=== PATIENT | female | born 1985 | race Caucasian/White ===

== ENCOUNTER 2020-06-17 14:58 | Outpatient (CLI) | payer OTHER ==
[2020-06-18 03:55] LABS: SARS-CoV-2 PCR by NAA Not Detected (NotDetected)
== END 2020-06-17 14:59 | disposition home or self-care (01) ==
LOC: CSHLAB 14:58
PROVIDERS: ATTEND Family Medicine
DX: Z20.822 Contact with and (suspected) exposure to COVID-19 (principal)
CPT/HCPCS: 87635; U0003; U0005

== ENCOUNTER 2020-06-28 04:18 | Inpatient (IN) | payer OTHER ==
[2020-06-28 04:39] VITALS: BMI 39.9
[2020-06-28] MEDS ORDERED: hydrALAZINE 20 MG/ML VIAL SLOW IVP PRN ×3 (05:45→19:03)
[2020-06-28] MEDS ORDERED: HYDROcodone/Acetaminophen 5/325 mg Tablet PO PRN ×3 (07:52→19:03)
[2020-06-28] MEDS ORDERED: Methylergonovine 0.2 MG/ML VIAL IM PRN (07:52)
[2020-06-28] MEDS ORDERED: Ibuprofen 800 MG TAB PO PRN (07:52)
[2020-06-28] MEDS ORDERED: Misoprostol 200 MCG TAB PR PRN (07:52)
[2020-06-28] MEDS ORDERED: Promethazine HCl 25 MG/ML VIAL IM PRN ×2 (07:52→11:33)
[2020-06-28] MEDS ORDERED: Carboprost 250 MCG/ML AMP IM PRN (07:52)
[2020-06-28] MEDS ORDERED: Diphenoxylate HCl/Atropine Tablet PO PRN (07:52)
[2020-06-28] MEDS ORDERED: Lidocaine 1% (PF) 30 ML VIAL SC PRN (07:52)
[2020-06-28] MEDS ORDERED: Ondansetron PF 4 MG/2 ML Vial IVP PRN ×3 (07:52→19:03)
[2020-06-28] MEDS ORDERED: Butorphanol Tartrate 1 MG/ML VIAL SLOW IVP PRN (07:52)
[2020-06-28] MEDS: Lactated Ringer's 1,000 ML IV SCH ×2 (08:10→11:33)
[2020-06-28 08:39] LABS: Hemoglobin 10.5 g/dL (12.0-15.5); Mean Corpuscular HGB CONC 33.1 g/dL (32.0-36.0); Mean Corpuscular Hemoglobin 27.9 pg (27.0-33.0); Mean Corpuscular Volume 84.3 fl (81.6-98.3); Mean Platelet Volume 11.5 fl (7.4-10.4); Platelet Count 261 10x3/uL (150-450); RBC Distribution Width 14.3 % (11.5-14.5); Red Blood Cell (RBC) Count 3.76 10x6/uL (3.90-5.03); White Blood Cell (WBC) Count 11.3 10x3/uL (3.5-10.5)
[2020-06-28] MEDS ORDERED: NS w/ Oxytocin 30 units 500 ML IVPB PRN (08:40)
[2020-06-28] MEDS ORDERED: NS w/ Oxytocin 30 units 500 ML IVPB SCH ×2 (08:45)
[2020-06-28 09:22] LABS: Hep B Surf Ag Non-Reactive S/CO (NonReactive); Syphilis Antibody Nonreactive (Nonreactive); Syphilis Antibody Index 0.03 S/CO (<1.00 Non-Reactive)
[2020-06-28 09:37] LABS: HBSAg Index 0.16 S/CO (0-0.99)
[2020-06-28] MEDS ORDERED: Fentanyl 4 mcg/Bup 0.1% Cadd 100 ML ONE (10:44)
[2020-06-28] MEDS ORDERED: diphenhydrAMINE 50 MG/ML VIAL IVP PRN (11:33)
[2020-06-28] MEDS ORDERED: Naloxone HCl 0.4 mg/ml Vial IVP PRN ×2 (11:33)
[2020-06-28] MEDS ORDERED: Lactated Ringer's 500 ML IV PRN (11:33)
[2020-06-28] MEDS ORDERED: Acetaminophen 325 MG TAB PO PRN (11:33)
[2020-06-28] MEDS ORDERED: Communication Order-Pharmacy FS SCH (11:45)
[2020-06-28] MEDS ORDERED: Fentanyl 4 mcg/Bupivacaine 0.1% Cassette 100 ML EPIDURAL SCH (11:45)
[2020-06-28] MEDS ORDERED: ePHEDrine Sulfate 50 MG/10 ML VIAL SLOW IVP PRN (11:47)
[2020-06-28] MEDS ORDERED: CEFAZOLIN 2 GM in Premix Bag 1 BAG IVPB SCH (15:00)
[2020-06-28] MEDS ORDERED: Lanolin Ointment 7 GM TUBE TOP PRN (19:03)
[2020-06-28] MEDS ORDERED: NS / Oxytocin 40 units/1000ml 1,000 ML IV SCH (19:03)
[2020-06-28] MEDS ORDERED: diphenhydrAMINE 25 MG CAP PO PRN (19:03)
[2020-06-28] MEDS ORDERED: Bisacodyl 10 MG SUPP PR PRN (19:03)
[2020-06-28] MEDS ORDERED: Milk Of Magnesia 30 ML UDCUP PO PRN (19:03)
[2020-06-28] MEDS ORDERED: Preparation H Ointment 28 GM TUBE PR PRN (19:03)
[2020-06-28] MEDS ORDERED: Adacel (T-DAP) 0.5 ML SYRINGE IM ONE (19:03)
[2020-06-28] MEDS: Docusate Calcium (SURFAK) 240 MG CAP PO SCH (22:19)
[2020-06-28] MEDS: Ibuprofen 800 MG TAB PO SCH (22:19)
[2020-06-29] MEDS: Ibuprofen 800 MG TAB PO SCH ×2 (05:25→14:56)
[2020-06-29] MEDS: Ferrous Sulfate 325 MG TAB PO SCH ×2 (08:03→16:24)
[2020-06-29] MEDS ORDERED: Prenatal Vitamin 1 TAB PO SCH (09:00)
[2020-06-29] MEDS: Docusate Calcium (SURFAK) 240 MG CAP PO SCH (09:23)
[2020-06-29 20:24] VITALS: BP 120/80; TEMP 98.6
== END 2020-06-29 21:10 | disposition home or self-care (01) | DRG 806 ==
LOC: CSHLD/OP 04:18 → CSHLD 08:33 → CSHPP 21:36
PROVIDERS: ADMIT Family Medicine; ATTEND Family Medicine
PROC: 10E0XZZ Delivery of Products of Conception, External Approach (ICD-10-PCS; principal; 2020-06-28)
PROC: 0KQM0ZZ Repair Perineum Muscle, Open Approach (ICD-10-PCS; 2020-06-28)
DX: O63.0 Prolonged first stage (of labor) (principal); O98.82 Other maternal infectious and parasitic diseases complicating childbirth; Z37.0 Single live birth; B95.1 Streptococcus, group B, as the cause of diseases classified elsewhere; Z3A.39 39 weeks gestation of pregnancy; O62.2 Other uterine inertia; O70.1 Second degree perineal laceration during delivery
CPT/HCPCS: 51702; 85027; 86780; 86850; 86900; 86901; 87340; 99285; J0690; J2210; J2590